=== PATIENT | female | born 1980 | race Caucasian/White ===

== ENCOUNTER → 2021-12-09 | Outpatient (CLI) | payer OTHER | LOC: KOH-I 13:44 | DX: M79.662 Pain in left lower leg (principal); M79.89 Other specified soft tissue disorders; M25.572 Pain in left ankle and joints of left foot; M19.072 Primary osteoarthritis, left ankle and foot | CPT/HCPCS: 73610; 73630; 93971 ==

== ENCOUNTER → 2021-12-18 | Outpatient (CLI) | payer OTHER ==
[~2021-12-18] VITALS: Ht 157.5 cm; Wt 99.8 kg
== END ==
LOC: OPSV 13:47
DX: D50.9 Iron deficiency anemia, unspecified (principal); K90.9 Intestinal malabsorption, unspecified
CPT/HCPCS: 96365; 96366; J1756; J7030

== ENCOUNTER → 2022-01-01 | Outpatient (CLI) | payer OTHER ==
[~2022-01-01] VITALS: Ht 157.5 cm; Wt 99.8 kg
== END ==
LOC: OPSV 11:24
DX: D50.9 Iron deficiency anemia, unspecified (principal); K90.9 Intestinal malabsorption, unspecified; E03.9 Hypothyroidism, unspecified; M25.572 Pain in left ankle and joints of left foot; M79.672 Pain in left foot
CPT/HCPCS: 96365; J1756; J7030

== ENCOUNTER → 2022-01-28 | Day surgery (SDC) | payer OTHER ==
[~2022-01-28] MED LIST: ADIPEX-P37.5 MG PO; CELEXA 20MG TAB20 MG PO; IMITREX100 MG PO; LEVOCETIRIZINE D5 MG PO; LEVOTHYROXINE137 MCG PO; MONTELUKAST SOD10 MG PO; OMEPRAZOLE40 MG PO; TOPROL XL50 MG PO; VENOFER100 MG/5 M IM; VITAMIN B-12100 MCG PO; VITAMIN D325 MC6 PO; [UNRECOGNIZED DRUG - OTHER]
== END | disposition home or self-care (01) ==
LOC: OR 06:05
DX: D50.9 Iron deficiency anemia, unspecified (principal); R19.5 Other fecal abnormalities; K64.0 First degree hemorrhoids; K59.09 Other constipation; K21.9 Gastro-esophageal reflux disease without esophagitis; E03.9 Hypothyroidism, unspecified; Z88.5 Allergy status to narcotic agent; Z88.2 Allergy status to sulfonamides; Z88.8 Allergy status to other drugs, medicaments and biological substances; Z91.040 Latex allergy status
CPT/HCPCS: 84703; J2704